=== PATIENT | female | born 1960 | race Caucasian/White ===

== ENCOUNTER 2024-11-11 06:14 | Day surgery (SDC) | payer SELFPAY ==
[2024-11-05 13:55] VITALS: BMI 16.9
[2024-11-11 06:32] VITALS: BP 134/79; PULSE 61; RESP 16; TEMP 36.5; O2SAT 99
--- NOTE | 2024-11-11 06:43 | EXP.HP ---
History of Present Illness *Admission Date: 11/11/24 *Reason for visit:: Screening/BRCA2 genetic risk *History of present illness: Mrs. Breaux is a 64-year-old female who is here for screening colonoscopy. She does have genetic risk with BRCA2 genetics and has family history (cousin with colon cancer). The examination is deemed medically necessary for screening colonoscopy. The patient has been seen, interviewed and examined prior to the procedure by both myself and the anesthesia provider. [facility] Disclaimer: The information contained in this section may have been updated after the patient was seen, as this information can be updated by other users. Medical History (Updated 11/11/24 @ 06:45 by Rafa Estrella II, MD) Hypertension Depression Hypothyroid Hypercholesterolemia Surgical History (Updated 11/05/24 @ 13:48 by Yoshi Cobos) Hx of breast reconstruction Hx of mastectomy Family History (Updated 11/05/24 @ 13:54 by Yoshi Cobos) Other No significant family history Social History (Updated 11/05/24 @ 13:54 by Yoshi Cobos) Smoking Status: Never smoker alcohol intake: former current occupational status: employed Travel in the last 8 weeks?: Outside the [facility] Review of Systems Review of Systems Review of systems (narrative): Negative *Cardiovascular Comments: Negative *Gastrointestinal Comments: Negative *Genitourinary Comments: Negative *Musculoskeletal Comments: Negative *Neurologic Comments: Negative Meds Home Medications and Allergies Home Medications ?Medication ?Instructions ?Recorded ?Confirmed ?Type bupropion HCl 150 mg tablet,12 hr 150 mg PO DAILY 11/05/24 11/05/24 History sustained-release evolocumab 420 mg/3.5 mL 420 mg SQ DIRECTED 11/05/24 11/05/24 History subcutaneous wearable injector (Repatha Pushtronex) thyroid (pork) 15 mg tablet 15 mg PO DAILY 11/05/24 11/05/24 History ([place]esty Thyroid) triamterene 50 mg capsule 37.5 mg PO DAILY 11/05/24 11/05/24 History New Prescriptions to Start Prescriptions: Allergies Allergy/AdvReac Type Severity Reaction Status Date / Time adhesive Allergy Rash Verified 11/05/24 13:54 latex Allergy Rash Verified 11/05/24 13:54 Exam Data for Last 24 hours Vital signs and Labs for Last 24 Hours: Temp Pulse Resp BP Pulse Ox O2 Del Method 97.7 F 61 16 134/79 99 Room Air 11/11/24 06:32 11/11/24 06:32 11/11/24 06:32 11/11/24 06:32 11/11/24 06:32 11/11/24 06:32 *Routine HEENT Exam Head: Present normocephalic Eye: Present EOMI and PERRL ENT: Present mucous membranes moist *Routine Neck Exam Neck: Present supple *Routine Respiratory Exam Respiratory: Present CTA bilaterally *Routine Cardiovascular Exam Cardiovascular: Present RRR *Routine Abdominal Exam Abdominal: Present soft and normoactive bowel sounds; Absent tenderness *Routine Rectal Exam Rectal:: deferred *Routine Genitalia Exam Genitalia:: deferred *Routine Extremities Exam Extremities: Absent cyanosis, clubbing or edema *Routine Skin Exam Skin: Present warm; Absent rash *Routine Neurological Exam Neurological: Present alert and oriented X3 Assessment and Plan *Assessment and plan (1) Encounter for screening for colorectal malignant neoplasm in high risk patient: Status: Acute Category: Medical Code(s): Z12.11 - Encounter for screening for malignant neoplasm of colon; Z12.12 - Encounter for screening for malignant neoplasm of rectum; Z91.89 - Other specified personal risk factors, not elsewhere classified (2) BRCA2 gene mutation positive: Status: Acute Category: Medical Code(s): Z15.01 - Genetic susceptibility to malignant neoplasm of breast; Z15.09 - Genetic susceptibility to other malignant neoplasm (3) Family history of colon cancer: Status: Acute Category: Medical Code(s): Z80.0 - Family history of malignant neoplasm of digestive organs Plan A/P: 1. High risk screening with BRCA2 gene positive and family history is the preprocedural diagnosis. The patient will be anesthetized/sedated using MAC sedation. The patient has been seen and examined. Cardiac and lung assessment prior to the examination is stable. Proceed with planned screening colonoscopy.
--- NOTE | 2024-11-11 06:46 | P.PCN_ITS ---
[facility] Procedure Note Date: 11/11/24 Time: 07:24 Procedure Note:: Colonoscopy Procedure Report: Colonoscopy Endoscopist: Rafa Estrella II, MD Referring physician: Bell Kolb MD, [id number], [place] [address] Date of Procedure: November 11, 2024 Equipment: Olympus 190 variable stiffness pediatric colonoscope Sedation: MAC sedation Indication: Mrs. Breaux is a 64-year-old female who is here for high risk screening colonoscopy secondary to BRCA2 genetic mutation and family history. The patient's last surveillance colonoscopy was 2 years ago and was normal. She has had routine surveillance and her cousin had colon cancer. The patient has developed some travel related constipation. After her breast reconstruction surgery she was given Dilaudid and this may have played some role with her constipation. She reports no rectal bleeding, abdominal pain or weight loss. Procedure: Prior to the procedure, a history and physical exam was performed, and patient's medications and allergies were reviewed. The risks, benefits and alternatives of the sedation and procedure were discussed with the patient. All questions were answered and informed consent was obtained. The patient was brought to the procedure room. Patient identification and proposed procedure were verified by the physician and the nurse. The patient was placed in a left lateral decubitus position and the scope was passed under direct vision. Throughout the procedure, the patient's blood pressure, pulse, and oxygen saturations were monitored continuously. The colonoscopy was accomplished without difficulty. The patient tolerated the procedure well. Findings: On digital rectal examination there was normal rectal tone. There were no external hemorrhoids. The colonoscope was introduced through the anal canal to the rectum and advanced to the cecum. The ileocecal valve and appendiceal orifice were identified. The scope was advanced a short distance into the ileum which appeared grossly normal. The scope was then withdrawn into the colon. The cecum, ascending, transverse, descending, sigmoid and rectum were grossly normal. There were no mucosal abnormalities identified. Upon retroflexion within the rectum there were grade 1 internal hemorrhoids. The preparation was excel lent throughout with [place] Preparation Score of 9. The cecal time was 12 minutes. Impression: 1. Normal colonoscopy with intubation of the terminal ileum Plan: Patient has never had adenomatous colon polyps. I would continue 2 year conservative surveillance. We will discuss strategies for on-demand relief of her intermittent travel related constipation. I would recommend a general/natural laxative such as Perdiem.
--- NOTE | 2024-11-11 06:49 | EXP.ANES.CKL ---
[facility] Disclaimer: The information contained in this section may have been updated after the patient was seen, as this information can be updated by other users. Medical History (Updated 11/11/24 @ 06:45 by Rafa Estrella II, MD) Hypertension Depression Hypothyroid Hypercholesterolemia Surgical History (Updated 11/05/24 @ 13:48 by Yoshi Cobos) Hx of breast reconstruction Hx of mastectomy Family History (Updated 11/05/24 @ 13:54 by Yoshi Cobos) Other No significant family history Social History (Updated 11/11/24 @ 06:46 by Rafa Estrella II, MD) Smoking Status: Never smoker alcohol intake: former substance use type: denies use current occupational status: employed Travel in the last 8 weeks?: Outside the [facility] Anesthesia Checklist Patient Identification Patient Identification: Arm Band Structural Data Admitted From: Home Planned Operative Procedure/s: Colonoscopy Consent for Planned Operative Procedure(s) Verified: Yes Verified Documents: Surgical Consent and History and Physical NPO Status Verified Time NPO: 00:00 Additional verifications Anesthesia Reactions: No Airway Assessment Mallampati Score:: Class II C-Spine Mobility Assessed: Yes TMJ Mobility Assessed: Yes Dentition: Good Dentition Neurological Assessment Level of Consciousness: Awake, Alert and Appropriate Anesthesia Plan Anesthesia Risk discussed: Yes Anesthesia Plan: Verified ASA Class: II Anesthesia Type: MAC
[2024-11-11 07:28] VITALS: BP 92/47; PULSE 54; RESP 16; TEMP 36.1; O2SAT 98
[2024-11-11 07:38] VITALS: BP 105/69; PULSE 61; RESP 16; O2SAT 98
[2024-11-11 07:48] VITALS: BP 115/60; PULSE 54; RESP 16; O2SAT 98
[2024-11-11 07:58] VITALS: BP 115/71; PULSE 54; RESP 16; TEMP 36.1; O2SAT 99
== END 2024-11-11 08:11 | disposition home or self-care (01) ==
PROVIDERS: Visit Provider Internal Medicine Gastroenterology
PROC: 0DJD8ZZ Inspection of Lower Intestinal Tract, Via Natural or Artificial Opening Endoscopic (ICD-10-PCS; CPT 45378; principal; 2024-11-11 15:30)
DX: Z12.11 Encounter for screening for malignant neoplasm of colon (principal); Z15.09 Genetic susceptibility to other malignant neoplasm; Z80.0 Family history of malignant neoplasm of digestive organs; K64.0 First degree hemorrhoids; I10 Essential (primary) hypertension; F32.A Depression, unspecified; E03.9 Hypothyroidism, unspecified; E78.00 Pure hypercholesterolemia, unspecified; Z79.899 Other long term (current) drug therapy; Z79.890 Hormone replacement therapy; Z79.620 Long term (current) use of immunosuppressive biologic; Z91.040 Latex allergy status; Z91.048 Other nonmedicinal substance allergy status
CPT/HCPCS: 45378; J2003; J2704